=== PATIENT | male | born 1975 | race Caucasian/White ===

== ENCOUNTER 2017-08-19 11:13 | Inpatient (IN) | payer OTHER ==
[~2017-08-19] VITALS: Ht 165.1 cm; Wt 111.0 kg
[2017-08-19] MEDS ORDERED: morphine 4 MG/ML VIAL IV STA (12:09)
[2017-08-19] MEDS ORDERED: ONDANSETRON 4 MG INJ IV STA (12:09)
[2017-08-19] MEDS ORDERED: SOD CHLORIDE 0.9% 1,000 ML IV ONE ×2 (12:30→13:30)
[2017-08-19] MEDS ORDERED: PIPER-TAZO 3.375 GM IV (PMX) 100 ML IVPB ONE (12:30)
[2017-08-19] MEDS ORDERED: VANCOMYCIN 1 GM (PMX) 250 ML IVPB SCH (12:30)
[2017-08-19 12:41] LABS: BASOPHIL # 0.1 10^3/ul (0.0-0.1); BASOPHILS % 0.6 % (0.0-2.0); EOSINOPHILS # 0.3 10^3/ul (0.0-0.5); EOSINOPHILS % 3.6 % (0.0-7.0); HEMATOCRIT 44.4 % (42.0-52.0); HEMOGLOBIN 15.4 g/dl (14.0-18.0); LYMPHOCYTES # 2.2 10^3/ul (0.8-2.9); LYMPHOCYTES % 25.5 % (15.0-51.0); MEAN CORPUSCULAR HEMOGLOBIN 28.7 pg (29.0-33.0); MEAN CORPUSCULAR HGB CONC 34.7 g/dl (32.0-37.0); MEAN CORPUSCULAR VOLUME 82.7 fl (82.0-101.0); MEAN PLATELET VOLUME 10.2 fl (7.4-10.4); MONOCYTE # 0.6 10^3/ul (0.3-0.9); MONOCYTES % 7.2 % (0.0-11.0); NEUTROPHIL # 5.4 10^3/ul (1.6-7.5); NEUTROPHILS % 62.8 % (39.0-77.0); PLATELET COUNT 393 10^3/UL (140-415); RED BLOOD COUNT 5.37 10^6/ul (4.70-6.10); RED CELL DISTRIBUTION WIDTH 11.5 % (11.5-14.5); WHITE BLOOD COUNT 8.6 10^3/ul (4.8-10.8)
[2017-08-19 13:01] LABS: C-REACTIVE PROTEIN 5.6 mg/dl (0.0-0.9); CALCIUM 9.3 mg/dl (8.4-10.2); CREATININE 0.78 mg/dl (0.61-1.24); POTASSIUM 4.4 mmol/L (3.5-5.1)
--- NOTE | 2017-08-19 13:12 | RADRPT ---
PROCEDURE: XR Ankle. CLINICAL INDICATION: Ankle pain TECHNIQUE: Three views of the right ankle are available for review COMPARISON: None available FINDINGS: There is no acute osseous or articular abnormality. No evidence for fracture. Bone mineral density is preserved. The articular surfaces are smooth without evidence of marginal erosions. There is spu rring of the anteromedial aspect of the talus without additional features of anterior ankle impingem ent. An os trigonum is present. A small plantar calcaneal enthesiophyte is present. There is soft ti ssue swelling in the region of the Achilles tendon insertion. IMPRESSION: 1. No acute osseous abnormality. 2. Marked soft tissue swelling the region of the Achilles insertion. Please note that MRI is more s ensitive in evaluating the soft tissues. 3. Bimalleolar soft tissue swelling. RPTAT: UU .Shree Hillman MD, MD Date Time Electronically viewed and signed by .Shree Hillman MD, MD on 08/19/2017 13:11 .d/
--- NOTE | 2017-08-19 13:12 | RADRPT ---
PROCEDURE: XR Foot. CLINICAL INDICATION: Foot pain TECHNIQUE: Three views of the right foot are available for review. COMPARISON: None available FINDINGS: There is no acute osseous or articular abnormality. No evidence for fracture. Bone mineral density is preserved. The articular surfaces are smooth without evidence of marginal erosions. There is spu rring of the anteromedial aspect of the talus without additional features of anterior ankle impingem ent. An os trigonum is present. A small plantar calcaneal enthesiophyte is present. There is soft ti ssue swelling in the region of the Achilles tendon insertion. IMPRESSION: 1. No acute osseous abnormality. 2. Marked soft tissue swelling the region of the Achilles insertion. Please note that MRI is more s ensitive in evaluating the soft tissues. 3. Bimalleolar soft tissue swelling. RPTAT: UU .Shree Hillman MD, MD Date Time Electronically viewed and signed by .Shree Hillman MD, MD on 08/19/2017 13:12 .d/
[2017-08-19 13:28] LABS: INR 1.12; PROTIME 14.4 Sec (12.2-14.2); PT RATIO 1.1
--- NOTE | 2017-08-19 13:58 | EN ---
Date/Time of Note Date/Time of Note DATE: 08/19/17 TIME: 13:56 ER Progress Note I have seen and evaluated the patient along with the PA and/or COATER provider. I agree with the evaluation and plan of care. Please see their documentation for full ER course and evaluation. In short: This is a 42-year-old male who presents for a wound to the right ankle. On exam: The patient has a significantly necrotic and excoriated wound to the posterior aspect of the lateral malleolus of the right lower extremity, no crepitus but associated induration and erythema and warmth, no lymphangitic spread, 2+ dorsalis pedis and posterior tibial pulses. Assessment and plan: The patient has signs and symptoms consistent with an abscess that is concerning for diabetic wound that may be hvac sales representative of osteomyelitis. The patient does not have a significant leukocytosis but does have elevated ESR and CRP and a slight lactic acidosis. Sodium is normal, very low clinical concern for necrotizing process. However MRI imaging would be appropriate. The patient is also found to be a new diabetic. This is likely type 2 diabetes. The patient was given a first dose of metformin here in the emergency room and IV fluids. Blood cultures were taken and the patient was given vancomycin and Zosyn. He has no evidence of Sirs or sepsis at this point other than his isolated lactic acid elevation. The patient does not meet sepsis criteria in the emergency department. Accepting care team and consultations: I discussed the current laboratory data, diagnostic imaging and emergency care provided. Admitting team: Dr. Carroll Admitting team indication: Insurance directed MARIETTA NOEL MD Aug 19, 2017 13:58
[2017-08-19] MEDS ORDERED: metFORMIN 500 MG TAB PO ONE (14:00)
[2017-08-19] MEDS ORDERED: ONDANSETRON 4 MG INJ IV PRN ×2 (14:00→16:30)
[2017-08-19] MEDS ORDERED: ACETAMINOPHEN 325 MG TAB PO PRN ×2 (14:00→16:30)
[2017-08-19 14:35] LABS: PARTIAL THROMBOPLASTIN TIME 25.3 Sec (25.0-35.0)
--- NOTE | 2017-08-19 15:16 | ERD ---
ER Documentation Chief Complaint Chief Complaint RT HEEL WOUND X 12 DAYS. DRAINING AND BLACK. UNKNOWN IF DM HPI Patient is a 42-year-old male with no known past medical history presenting to the emergency department with complaints of wound to his right outer ankle. Wound has been increasing in size and worsening rapidly over the past 3 days. He denies any history of bug bites here. He notes some drainage to the wound. He has pain in the area which is worse with ambulation. Symptoms are moderate in severity. He has taken no antibiotics for this. He denies fevers, chills, or other symptoms currently. He does not smoke, he does not drink alcohol, he does not do drugs. He states he has never been told he has diabetes or high blood pressure however he does not follow up with his primary care physician regularly. No other symptoms to report currently. ROS All systems reviewed and are negative except as per history of present illness. Allergies Allergies: Coded Allergies: No Known Allergy (Unverified , 08/19/17) PMhx/Soc Medical and Surgical Hx: pt denies Medical Hx, pt denies Surgical Hx History of Surgery: No Anesthesia Reaction: No Hx Neurological Disorder: No Hx Respiratory Disorders: No Hx Cardiac Disorders: No Hx Psychiatric Problems: No Hx Miscellaneous Medical Probl: No Hx Alcohol Use: No Hx Substance Use: No Hx Tobacco Use: No Smoking Status: Never smoker Physical Exam Vitals Vital Signs Date Time Temp Pulse Resp B/P Pulse Ox O2 Delivery O2 Flow Rate FiO2 08/19/17 11:24 98.9 84 18 138/90 95 Physical Exam Const: Nontoxic, well-appearing male in no acute distress. Head: Atraumatic Eyes: Normal Conjunctiva ENT: Normal External Ears, Nose and Mouth. Neck: Full range of motion..~ No meningismus. Resp: Clear to auscultation bilaterally Cardio: Regular rate and rhythm, no murmurs Skin: There is an approximate 3 cm x 3 cm excoriated, necrotic area noted to the lateral malleolus of the right lower extremity. There is some active purulent drainage at the site. There is surrounding warmth and erythema with spread proximally about 6 centimeters past the wound area. Ext: No cyanosis, or edema Neur: Awake and alert Psych: Normal Mood and Affect Result Diagram: 08/19/17 1210 08/19/17 1210 Results 24 hrs Laboratory Tests Test 08/19/17 12:10 White Blood Count 8.610^3/ul Red Blood Count 5.3710^6/ul Hemoglobin 15.4g/dl Hematocrit 44.4% Mean Corpuscular Volume 82.7fl Mean Corpuscular Hemoglobin 28.7pg Mean Corpuscular Hemoglobin Concent 34.7g/dl Red Cell Distribution Width 11.5% Platelet Count 09657^3/UL Mean Platelet Volume 10.2fl Neutrophils % 62.8% Lymphocytes % 25.5% Monocytes % 7.2% Eosinophils % 3.6% Basophils % 0.6% Nucleated Red Blood Cells % 0.0/100WBC Neutrophils # 5.410^3/ul Lymphocytes # 2.210^3/ul Monocytes # 0.610^3/ul Eosinophils # 0.310^3/ul Basophils # 0.110^3/ul Nucleated Red Blood Cells # 0.010^3/ul Erythrocyte Sedimentation Rate 45mm/Hr Prothrombin Time 14.4Sec Prothrombin Time Ratio 1.1 INR International Normalized Ratio 1.12 Activated Partial Thromboplast Time 25.3Sec Sodium Level 142mmol/L Potassium Level 4.4mmol/L Chloride Level 100mmol/L Carbon Dioxide Level 31mmol/L Anion Gap 15 Blood Urea Nitrogen 14mg/dl Creatinine 0.78mg/dl Glucose Level 301mg/dl Lactic Acid Level 2.7mmol/L Calcium Level 9.3mg/dl C-Reactive Protein 5.6mg/dl Current Medications Medications (Trade) Dose Ordered Sig/Nika Route PRN Reason Start Time Stop Time Status Last Admin Dose Admin Morphine Sulfate (morphine) 4 mg ONCE STAT IV 08/19/17 12:09 08/19/17 12:13 DC 08/19/17 12:19 Ondansetron HCl 4 mg 4 mg ONCE STAT IV 08/19/17 12:09 08/19/17 12:13 DC 08/19/17 12:19 Sodium Chloride 1,000 ml @ 1,000 mls/hr Q1H ONCE IV 08/19/17 12:30 08/19/17 13:29 DC 08/19/17 12:19 Piperacillin Sod/ Tazobactam Sod 100 ml @ 200 mls/hr ONCE ONCE IVPB 08/19/17 12:30 08/19/17 12:59 DC 08/19/17 12:19 Vancomycin HCl 250 ml @ 125 mls/hr ONCE IVPB 08/19/17 12:30 08/19/17 14:29 DC 08/19/17 13:20 Sodium Chloride (NS) 1,000 ml @ 1,000 mls/hr Q1H ONCE IV 08/19/17 13:30 08/19/17 14:29 DC 08/19/17 13:44 Metformin HCl (Glucophage) 500 mg ONCE ONCE PO 08/19/17 14:00 08/19/17 14:01 DC 08/19/17 15:01 Ondansetron HCl (Zofran Inj) 4 mg BRIDGE ORDER PRN IV NAUSEA AND/OR VOMITING 08/19/17 14:00 08/20/17 13:59 Acetaminophen (Tylenol Tab) 650 mg ER BRIDGE PRN PO MILD PAIN/FEVER 08/19/17 14:00 08/20/17 13:59 Procedures/MDM 42-year-old male presents to the emergency department with complaints of wound to his right lower extremity. Physical examination is concerning for an abscess with surrounding cellulitis with possible early necrosis. The patient was placed on a stretcher, IV line established, IV fluids, IV morphine, IV Zofran, IV vancomycin, IV Zosyn given. The patient is feeling improved on reevaluation. Upon review of the patient's laboratory results, there is no evidence of leukocytosis or anemia. ESR was elevated at 45, glucose is elevated at 301, C-reactive protein elevated at 5.6, lactic acid elevated at 2.7. The patient was given 2 L of IV fluids in the department as well as early antibiotic therapy. The patient did not meet septic criteria because of his normal white count. This case was discussed with attending physician, Dr. Lenard Rubalcava, who evaluated the patient bedside and agreed with the overall ED course. He did facilitate admission for the patient. See admission details below. Imaging of the right ankle showed no signs of osteomyelitis, see further details below. Patient will be admitted for further evaluation and treatment as appropriate by admitting physician. Accepting care team and consultations: I discussed the current laboratory data, diagnostic imaging and emergency care provided. Admitting team: Dr. Carroll Admitting team indication: Insurance directed PROCEDURE: XR Ankle. CLINICAL INDICATION: Ankle pain TECHNIQUE: Three views of the right ankle are available for review COMPARISON: None available FINDINGS: There is no acute osseous or articular abnormality. No evidence for fracture. Bone mineral density is preserved. The articular surfaces are smooth without evidence of marginal erosions. There is spurring of the anteromedial aspect of the talus without additional features of anterior ankle impingement. An os trigonum is present. A small plantar calcaneal enthesiophyte is present. There is soft tissue swelling in the region of the Achilles tendon insertion. IMPRESSION: 1. No acute osseous abnormality. 2. Marked soft tissue swelling the region of the Achilles insertion. Please note that MRI is more sensitive in evaluating the soft tissues. 3. Bimalleolar soft tissue swelling. RPTAT: UU .Shree Hillman MD, MD Date Time Electronically viewed and signed by .Shree Hillman MD, MD on 08/19/2017 13:11 Departure Diagnosis: Primary Impression: Cellulitis Site of cellulitis: extremity Site of cellulitis of extremity: lower extremity Laterality: right Qualified Code: L03.115 - Cellulitis of right lower extremity Additional Impressions: Diabetic ulcer of ankle Hyperglycemia Condition: Fair TESSY LEVY PA-C Aug 19, 2017 15:16
[2017-08-19 16:16] VITALS: BP 92/46; PULSE 85; RESP 16
[2017-08-19 16:23] VITALS: Ht 165.1 cm; Wt 111.0 kg
[2017-08-19] MEDS ORDERED: NA PHOSPHATE/BIPHOS 133 ML ENEMA PR PRN (16:30)
[2017-08-19] MEDS ORDERED: VANCOMYCIN IV PER PHARMACY XX SCH (16:30)
[2017-08-19] MEDS ORDERED: MAGNESIUM HYDROXIDE 30ML CUP PO PRN (16:30)
[2017-08-19] MEDS ORDERED: hydrALAzine 20 MG INJ IV PRN (16:30)
[2017-08-19] MEDS ORDERED: HYDROCODONE/APAP (5/325) TAB PO PRN (16:30)
[2017-08-19] MEDS ORDERED: LORAZEPAM 2 MG INJ IV PRN (16:30)
[2017-08-19] MEDS ORDERED: ALBUTEROL/IPRATROPIUM (NEB) 3 ML AMP HHN PRN (16:30)
[2017-08-19] MEDS ORDERED: DOCUSATE SODIUM 100 MG CAP PO PRN (16:30)
[2017-08-19] MEDS ORDERED: NITROGLYCERIN (SL) 0.4 MG TAB SL PRN (16:30)
[2017-08-19] MEDS ORDERED: NACL 0.9% 3 ML SYG IV SCH (16:30)
[2017-08-19] MEDS ORDERED: GLUCOSE GEL 15 GRAM TUBE PO PRN ×2 (17:00)
[2017-08-19] MEDS ORDERED: GLUCOSE GEL 15 GRAM TUBE BUCCAL PRN (17:00)
[2017-08-19] MEDS ORDERED: DEXTROSE 50% 50 ML SYRINGE IV PRN ×2 (17:00)
[2017-08-19] MEDS ORDERED: GLUCAGON 1 MG INJ IM PRN (17:00)
[2017-08-19] MEDS ORDERED: VANCOMYCIN 1 GM (PMX) 250 ML IVPB ONE (17:00)
[2017-08-19] MEDS: SOD CHLORIDE 0.45% 1,000 ML IV SCH (17:36)
[2017-08-19] MEDS: INSULIN ASPART [NOVOLOG] 3 ML PEN SC SCH ×2 (17:49→23:07)
[2017-08-19 18:59] LABS: PT RATIO 1.1
[2017-08-19 19:01] LABS: PARTIAL THROMBOPLASTIN TIME 24.3 Sec (25.0-35.0)
[2017-08-19 19:13] LABS: INR 1.04; PROTIME 13.6 Sec (12.2-14.2)
[2017-08-19 19:28] VITALS: BP 93/51; RESP 18
[2017-08-19] MEDS ORDERED: LIDOCAINE 1% (MDV) 20 ML INJ ONE ×2 (19:53→20:00)
--- NOTE | 2017-08-19 20:11 | HP ---
DATE OF ADMISSION: 08/19/2017 IDENTIFICATION: This is a 42-year-old male. CHIEF COMPLAINT: Right foot pain and drainage. HISTORY OF PRESENT ILLNESS: The patient is a 42-year-old male, no significant past medical history, who says he has been having right ankle and foot pain for the last 4-5 days. Occurs mostly on the right outer ankle. He says he did not have any history of any bug bites, but he believes something fell in his house. It is unclear he says he may have hit his ankle against a piece of wood or furniture at home and started to notice some dark drainage as well as pus coming from the area for the last 4-5 days from the right ankle. No prior history of this. No chest pain or shortness of breath. No headaches or dizziness. No loss of consciousness. No fevers or chills. No diarrhea or constipation. No abdominal pain. When he came into the Emergency Room today, he was found with elevated lactic acid of around 2.7. His sugars were also elevated around 300 and the CRP and ESR were elevated as well and he had an ankle x-ray that showed no acute osseous abnormalities, but there is some marked soft tissue swelling in the region of the Achilles insertion. PAST MEDICAL HISTORY: As stated above. ALLERGIES: NO KNOWN DRUG ALLERGIES. MEDICATIONS: None. PAST SURGICAL HISTORY: None. SOCIAL HISTORY: Negative for smoking, drinking, IV drug abuse. FAMILY HISTORY: Mother had cancer and sister has diabetes. PHYSICAL EXAMINATION: VITAL SIGNS: Today, T-max 98.9, pulse of 84 to 85, respirations 16 to 18, blood pressure 92 to 138 systolic over 46 to 90 diastolic, sating at 96 percent on room air. GENERAL: The patient is lying in bed, answers questions appropriately. No acute distress. HEENT: Pupils equal, round, react to light. Extraocular muscles intact. NECK: Supple. No thyromegaly. LUNGS: Clear to auscultation bilaterally. CARDIAC: S1, S2 heard. No rubs or gallops. ABDOMEN: Soft, nontender, nondistended. Normal bowel sounds. No rebound or guarding. MUSCULOSKELETAL: On his right lower extremity on the right ankle, there is some redness and warmth noted on the right outer foot and also there is drainage noted on the outside right lateral malleolus. Some mild pus drainage as well. Otherwise, no lower extremity edema bilaterally. NEUROLOGIC: No focal deficits. LABS: CBC is completely normal. ESR is 45. Again, basic metabolic panel is normal except the sugar is 301. Lactic acid 2.7. CRP is 5.6, coags are normal. We mentioned x-ray results. ASSESSMENT/PLAN: The patient is a 42-year-old male coming in with right ankle pain with signs of cellulitis and rule out osteomyelitis. 1. Right ankle pain and swelling. Again, signs of infection. We will admit the patient and put him on broad spectrum antibiotic. We will get infectious disease and podiatry consult. Check TSH, A1c, and lipid panel. We put him on IV fluids. We will follow culture results. Tylenol p.r.n. pain and fevers. Broad-spectrum antibiotics. 2. Deep venous thrombosis prophylaxis. Heparin subcu. Dictated By: Elijah Carroll MD /lalo/scot /Document#: [id number]
[2017-08-19] MEDS: PIPER-TAZO 3.375 GM IV (PMX) 100 ML IVPB SCH (20:21)
[2017-08-19] MEDS ORDERED: FLUCONAZOLE 200 MG TAB PO ONE (20:30)
[2017-08-19] MEDS ORDERED: metroNIDAZOLE 500 MG/NS (PMX) 250 MG in EVAC CONTAINER 1 BOTTLE IVPB ONE (20:30)
[2017-08-19] MEDS: SODIUM HYPOCHLORITE 1/40% 1L IRRIG IRR SCH (21:00)
[2017-08-19] MEDS: HEPARIN 5,000 UNIT/0.5 ML VIAL SC SCH (22:56)
[2017-08-19] MEDS: morphine 2 MG INJ IV PRN (22:58)
[2017-08-19] MEDS: VANCOMYCIN 1.75 GM in NS 500 ML IVPB SCH (23:43)
[2017-08-20] MEDS: PIPER-TAZO 3.375 GM IV (PMX) 100 ML IVPB SCH ×5 (00:49→23:45)
[2017-08-20] MEDS: INSULIN ASPART [NOVOLOG] 3 ML PEN SC SCH ×7 (01:00→20:51)
[2017-08-20 02:00] VITALS: BP 104/64; RESP 18
[2017-08-20] MEDS ORDERED: ACCU-CHEK XX SCH (02:00)
--- NOTE | 2017-08-20 02:15 | CONS ---
DATE OF ADMISSION: 08/19/2017 DATE OF CONSULTATION: 08/19/2017 REASON FOR CONSULTATION: Right lateral ankle abscess. 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 The patient has a necrotizing infection and patient relates pain. Denies fever, nausea, vomiting , chills. He had radiographs and showed no osseous irregularity. There is marked soft tissue swell ing. Patient unfunded. PAST MEDICAL HISTORY: Illnesses: Newly diagnosed diabetes. MEDICATIONS: Include: 1. Vancomycin. 2. Zosyn. ILLNESSES: None. ALLERGIES: NONE. PHYSICAL EXAMINATION: VITAL SIGNS: Temperature 99, pulse 98, respiratory 18, blood pressure 93/51, pulse oximetry is 94 o n room air. GENERAL: The patient alert, oriented, no acute distress. Regular respiration. EXTREMITIES: Has hair on the right lower extremity and there is cellulitis to the right lateral ank le with skin necrosis with 2 patches with area indurated of approximately 10 x 5 cm. There is purul ent drainage. The skin necrosis is posterior lateral ankle approximately 3 x 3 cm. Pain with palpa tion. The patient has a 2+ DP, PT pulse. Malodor present. The patient with ascending cellulitis. LABORATORIES: WBC 8.6, hemoglobin 15.4, hematocrit 44.4, platelets 393. Sed rate is 45. Blood glu cose is 283. Lactic acid is 2.3. Sodium 142, potassium 4.4, chloride 100, CO2 31, BUN is 14, creat inine 0.78, glucose is 301. C-reactive protein is 5.6. Radiographs of ankle and foot, no osseous i rregularity soft tissue edema present. ASSESSMENT: 1. Right ankle abscess with skin, subcutaneous necrosis, necrotizing infection. 2. Diabetes, newly diagnosed. 3. Hyperglycemia. 4. Edema. 5. Pain. PLAN: Patient seen and evaluated. Would benefit from operative intervention. Given the severity a nd potential for further skin necrosis from necrotizing infection, recommend emergent incision and d rainage. Patient consented, and patient understands he may require further operative intervention. Consented for right foot and ankle incision and drainage. Local anesthesia 1% lidocaine plain was injected to the periphery of the ankle. Using an 11-blade, incision was made of approximately 10 cm , was carried below fascia. Hemostat was used to express the abscess. There is a necrotizing infec tion to level of peroneal tendon and traveling to the posterior aspect of the Achilles tendon. Ther e is purulent drainage which was overflowing. Cultures were obtained. Wound was irrigated with Bet adine and packed open with gauze dressing, wrapped with Kerlix. The patient tolerated procedure wel l. Timeout was performed. Nurse assisted with procedure and patient had been initiated on vancomyc in and Zosyn. We will add Flagyl and fluconazole. Dictated By: KAT KIRAN DPM RB/GRIFFIN Conf#: [id number] DID#: [id number] CC: NIKKI JUÁREZ;*Kristan*
[2017-08-20] MEDS: morphine 2 MG INJ IV PRN ×2 (03:34→11:41)
[2017-08-20] MEDS: SOD CHLORIDE 0.45% 1,000 ML IV SCH ×2 (05:16→17:35)
[2017-08-20 06:12] LABS: BASOPHILS % 0.4 % (0.0-2.0); EOSINOPHILS # 0.2 10^3/ul (0.0-0.5); HEMATOCRIT 39.4 % (42.0-52.0); HEMOGLOBIN 13.2 g/dl (14.0-18.0); LYMPHOCYTES # 1.8 10^3/ul (0.8-2.9); MEAN CORPUSCULAR HEMOGLOBIN 28.3 pg (29.0-33.0); MEAN CORPUSCULAR HGB CONC 33.5 g/dl (32.0-37.0); MEAN CORPUSCULAR VOLUME 84.4 fl (82.0-101.0); MEAN PLATELET VOLUME 10.4 fl (7.4-10.4); MONOCYTE # 0.7 10^3/ul (0.3-0.9); MONOCYTES % 7.2 % (0.0-11.0); NEUTROPHIL # 6.4 10^3/ul (1.6-7.5); NEUTROPHILS % 70.1 % (39.0-77.0); PLATELET COUNT 352 10^3/UL (140-415); RED BLOOD COUNT 4.67 10^6/ul (4.70-6.10); RED CELL DISTRIBUTION WIDTH 11.9 % (11.5-14.5); WHITE BLOOD COUNT 9.1 10^3/ul (4.8-10.8)
[2017-08-20] MEDS: VANCOMYCIN 1.75 GM in NS 500 ML IVPB SCH ×2 (06:39→16:04)
[2017-08-20 06:42] LABS: CALCIUM 8.7 mg/dl (8.4-10.2); CHOL/HDL RATIO 5.4 RATIO; CREATININE 0.93 mg/dl (0.61-1.24); PHOSPHORUS 5.1 mg/dl (2.5-4.9); POTASSIUM 4.5 mmol/L (3.5-5.1)
[2017-08-20 07:11] LABS: THYROID STIMULATING HORMONE 0.775 MIU/L (0.465-4.680)
[2017-08-20 07:16] LABS: MAGNESIUM 1.9 mg/dl (1.7-2.5)
[2017-08-20 07:49] VITALS: BP 106/60; RESP 18
[2017-08-20] MEDS ORDERED: INSULIN GLARGINE [LANtus] 3 ML PEN SC SCH (08:00)
[2017-08-20] MEDS: HEPARIN 5,000 UNIT/0.5 ML VIAL SC SCH ×2 (08:43→20:50)
--- NOTE | 2017-08-20 09:20 | PN ---
Date/Time of Note Date/Time of Note DATE: 08/20/17 TIME: 09:14 Assessment/Plan VTE Prophylaxis VTE Prophylaxis Intervention: heparin Lines/Catheters IV [facility]from [facility] Saline [facility] Assessment/Plan Chief Complaint/Hosp Course ASSESSMENT/PLAN: 42-year-old male coming in with right ankle pain with signs of cellulitis and rule out osteomyelitis, as well as elevated blood sugars. 1. Right ankle pain and swelling-appreciate podiatry consult, patient had bedside incision and drainage performed yesterday -Continue broad spectrum antibiotics. -Follow-up further recommendations infectious disease and podiatry consult Continue IV fluids, and follow up culture results. - Tylenol p.r.n. pain and fevers. -MRI of the foot is pending as well follow this up 2. DM2 -appears to be new diagnosis as patient was not aware of any history of diabetes in the past. A1c = 10 range. Sugar still slightly elevated. -We will add aspart with meals, increase Lantus slightly, continue sliding scale 3. Deep venous thrombosis prophylaxis. Heparin subcu. 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 Exam/Review of Systems Vital Signs Vitals Vital Signs Date Time Temp Pulse Resp B/P Pulse Ox O2 Delivery O2 Flow Rate FiO2 08/20/17 07:49 98.5 55 18 106/60 96 08/19/17 16:16 Room Air Intake and Output 08/19/17 08/19/17 08/20/17 15:00 23:00 07:00 Intake Total 500 ml 1450 ml Balance 500 ml 1450 ml Exam GENERAL: The patient is lying in bed, answers questions appropriately. No acute distress. HEENT: Pupils equal, round, react to light. Extraocular muscles intact. NECK: Supple. No thyromegaly. LUNGS: Clear to auscultation bilaterally. CARDIAC: S1, S2 heard. No rubs or gallops. ABDOMEN: Soft, nontender, nondistended. Normal bowel sounds. No rebound or guarding. MUSCULOSKELETAL: On his right lower extremity on the right ankle, there is some redness and warmth noted on the right outer foot and also there is drainage noted on the outside right lateral malleolus. Some mild pus drainage as well. Otherwise, no lower extremity edema bilaterally. NEUROLOGIC: No focal deficits. Results Result Diagram: 08/20/17 0534 08/20/17 0534 Results 24 hrs Laboratory Tests Test 08/19/17 12:10 08/19/17 16:09 08/19/17 17:25 08/19/17 18:30 White Blood Count 8.6 Red Blood Count 5.37 Hemoglobin 15.4 Hematocrit 44.4 Mean Corpuscular Volume 82.7 Mean Corpuscular Hemoglobin 28.7 L Mean Corpuscular Hemoglobin Concent 34.7 Red Cell Distribution Width 11.5 Platelet Count 393 Mean Platelet Volume 10.2 Neutrophils % 62.8 Lymphocytes % 25.5 Monocytes % 7.2 Eosinophils % 3.6 Basophils % 0.6 Nucleated Red Blood Cells % 0.0 Neutrophils # 5.4 Lymphocytes # 2.2 Monocytes # 0.6 Eosinophils # 0.3 Basophils # 0.1 Nucleated Red Blood Cells # 0.0 Erythrocyte Sedimentation Rate 45 H Prothrombin Time 14.4 H 13.6 Prothrombin Time Ratio 1.1 1.1 INR International Normalized Ratio 1.12 1.04 Activated Partial Thromboplast Time 25.3 24.3 L Sodium Level 142 Potassium Level 4.4 Chloride Level 100 Carbon Dioxide Level 31 Anion Gap 15 Blood Urea Nitrogen 14 Creatinine 0.78 Glucose Level 301 H Lactic Acid Level 2.7 *H 1.6 Calcium Level 9.3 C-Reactive Protein 5.6 H Bedside Glucose 267 H 283 H Free Thyroxine 1.32 Test 08/19/17 22:40 08/20/17 00:51 08/20/17 00:59 08/20/17 05:34 Bedside Glucose 254 H 234 H Lactic Acid Level 1.9 1.4 White Blood Count 9.1 Red Blood Count 4.67 L Hemoglobin 13.2 L Hematocrit 39.4 L Mean Corpuscular Volume 84.4 Mean Corpuscular Hemoglobin 28.3 L Mean Corpuscular Hemoglobin Concent 33.5 Red Cell Distribution Width 11.9 Platelet Count 352 Mean Platelet Volume 10.4 Neutrophils % 70.1 Lymphocytes % 20.0 Monocytes % 7.2 Eosinophils % 2.0 Basophils % 0.4 Nucleated Red Blood Cells % 0.0 Neutrophils # 6.4 Lymphocytes # 1.8 Monocytes # 0.7 Eosinophils # 0.2 Basophils # 0.0 Nucleated Red Blood Cells # 0.0 Sodium Level 141 Potassium Level 4.5 Chloride Level 104 Carbon Dioxide Level 28 Anion Gap 14 Blood Urea Nitrogen 15 Creatinine 0.93 Glucose Level 225 H Hemoglobin A1c 10.2 H Calcium Level 8.7 Phosphorus Level 5.1 H Magnesium Level 1.9 Triglycerides Level 146 Cholesterol Level 157 LDL Cholesterol, Calculated 99 HDL Cholesterol 29 Cholesterol/HDL Ratio 5.4 Thyroid Stimulating Hormone (TSH) 0.775 Test 08/20/17 08:14 Bedside Glucose 222 H Medications Medications Current Medications Ondansetron HCl (Zofran Inj) 4 mg Q6H PRN IV NAUSEA AND/OR VOMITING; Start at 16:30 Acetaminophen (Tylenol Tab) 650 mg Q6H PRN PO PAIN LEVEL 1-3 OR FEVER; Start 08/19/17 at 16:30 Acetaminophen/ Hydrocodone Bitart ([place] (5/325)) 1 tab Q6H PRN PO MODERATE PAIN LEVEL 4-6; Start 08/19/17 at 16:30 Morphine Sulfate (morphine) 2 mg Q4H PRN IV SEVERE PAIN LEVEL 7-10 Last administered on 08/20/17 03:34; Admin Dose 2 MG; Start 08/19/17 at 16:30 Docusate Sodium (Colace) 100 mg Q12H PRN PO CONSTIPATION; Start 08/19/17 at 16 :30 Magnesium Hydroxide (Milk Of Mag) 30 ml DAILY PRN PO CONSTIPATION; Start 08/19 at 16:30 Sodium Biphosphate/ Sodium Phosphate (Fleet Enema) 133 ml DAILY PRN NM CONSTIPATION; Start 08/19/17 at 16:30 Heparin Sodium (Porcine) 5000 unit 5,000 unit Q12 SC Last administered on 08/20 08:43; Admin Dose 5,000 UNIT; Start 08/19/17 at 21:00 Sodium Chloride (1/2 NS) 1,000 ml @ 75 mls/hr [id number] IV Last administered on 08/19/17 17:36; Admin Dose 75 MLS/HR; Start 08/19/17 at 16:26 Lorazepam 0.5 mg 0.5 mg Q6H PRN IV ANXIETY; Start 08/19/17 at 16:30 Piperacillin Sod/ Tazobactam Sod (Zosyn 3.375gm/ 100 ml (Pmx)) 100 ml @ 200 mls /hr Q6 IVPB Last administered on 08/20/17 05:33; Admin Dose 200 MLS/HR; Start 08/19/17 at 18:00 Vancomycin HCl (Vanco Iv Per Pharmacy) VANCOMYCIN PER PHARMACY NOTE XX ; Start 08/19/17 at 16:30 Hydralazine HCl (Apresoline) 10 mg Q6H PRN IV ELEVATED BLOOD PRESSURE; Start 08/19/17 at 16:30 Clonidine (Catapres) 0.1 mg Q6H PRN PO ELEVATED BLOOD PRESSURE; Start at 16:30 Nitroglycerin (Nitroglycerin (Sl Tab) 0.4 Mg) 1 tab Q5M PRN SL ANGINA; Start 08/19/17 at 16:30 Miscellaneous Information 1 ea NOTE XX ; Start 08/19/17 at 17:00 Glucose (Glutose) 15 gm Q15M PRN PO DECREASED GLUCOSE; Start 08/19/17 at 17:00 Glucose (Glutose) 22.5 gm Q15M PRN PO DECREASED GLUCOSE; Start 08/19/17 at 17: 00 Dextrose (D50w Syringe) 25 ml Q15M PRN IV DECREASED GLUCOSE; Start 08/19/17 at 17:00 Dextrose (D50w Syringe) 50 ml Q15M PRN IV DECREASED GLUCOSE; Start 08/19/17 at 17:00 Glucagon (Glucagen) 1 mg Q15M PRN IM DECREASED GLUCOSE; Start 08/19/17 at 17: 00 Glucose 15 gm 15 gm Q15M PRN BUCCAL DECREASED GLUCOSE; Start 08/19/17 at 17:00 Vancomycin HCl/ Sodium Chloride (Vancocin/NS) 500 ml @ 125 mls/hr Q8H IVPB Last administered on 08/20/17 06:39; Admin Dose 125 MLS/HR; Start 08/19/17 at 23:00 Sodium Hypochlorite (Dakin'S (Dilute 1/40%)) 1 applic BID IRR ; Start 08/19/17 at 21:00 Diagnostic Test (Pha) (Accu-Chek) 1 ea 02 XX ; Start 08/21/17 at 02:00 Miscellaneous Information (*Rx Drug Level Order Reminder*) VANCOMYCIN TROUGH AT 1400 ONCE ONCE XX ; Start 08/20/17 at 14:00; Stop 08/20/17 at 14:01 Insulin Glargine (Lantus) 20 unit DAILY@08 IN ; Start 08/21/17 at 08:00; Status AVIV NIKKI JUÁREZ Aug 20, 2017 09:20
--- NOTE | 2017-08-20 11:19 | CONS ---
DATE OF ADMISSION: 08/19/2017 DATE OF CONSULTATION: 08/19/2017 TYPE OF CONSULTATION: Infectious disease. REASON FOR CONSULTATION: Antibiotic management. HISTORY OF PRESENT ILLNESS: Darius Benton is a 42-year-old male who comes in with right f oot pain and drainage. Patient has no past significant medical history. He has been having right a nkle and foot pain for the last 4 or 5 days prior to admission. The pain occurs mostly on the right outer ankle. He did not have any history of bug bites. He may have hit his ankle against a piece of furniture and started to notice dark drainage as well as pus coming from the area over the last 4 -5 days from right ankle. No chest pain or shortness of breath. LABORATORY DATA: His lactic acid was 2.7 in the emergency room. His sugar was elevated around 300. CRP and ESR were elevated as well and he had an ankle x-ray that showed no acute osseous abnormali ties with marked soft tissue swelling in the region of the Achilles insertion. On admission, his wh ite count was 8.6, H and H 15.4 and 44.4, platelet count 393,000. Today his white count is 9.1, BUN and creatinine is 16/0.93. An x-ray of the foot shows no acute osseous abnormalities, marked soft tissue swelling of the region of the Achilles insertion, an MRI was recommended, bimalleolar soft ti ssue swelling. Ankle x-ray: No change same as the foot x-ray. MICROBIOLOGY: Blood cultures are positive for gram-positive cocci in clusters. The patient noted t o have right ankle cellulitis, rule out osteomyelitis. Podiatry as well as infectious disease was judith marrero. The patient was started on vancomycin. He also was on Zosyn. PAST MEDICAL HISTORY: Operations as outlined. FAMILY HISTORY: Noncontributory. SOCIAL HISTORY: Does not smoke, drink or abuse drugs. ALLERGIES: NONE TO PENICILLIN, SULFA OR FOODS. MEDICATIONS: Per chart. REVIEW OF SYSTEMS: As per HPI. PHYSICAL EXAMINATION: GENERAL: The patient is a well-developed, well-nourished male who is alert, responsive, in no acute distress. VITAL SIGNS: Stable. He is afebrile. SKIN: Without generalized rash. HEENT: Within normal limits. NECK: Supple. LYMPH NODES: None palpable. CHEST: Decreased breath sounds at the bases. HEART: Without murmur, rub or gallop. ABDOMEN: Soft, nontender, without organosplenomegaly or masses. EXTREMITIES: Right lower extremity, the right ankle has redness, warmth on the lateral aspect with drainage of the right lateral malleolus. There is no edema. RECTAL AND GENITAL: Deferred. NEUROLOGIC: No focal neurological abnormalities. ANCILLARY LABORATORY DATA: Sedimentation rate is 45. Lactic acid was 2.7. IMPRESSION AND PLAN: The patient has a cellulitis and possibly osteomyelitis. An MRI is pending. We will continue him on vancomycin and Zosyn for now. Await the culture reports. He may benefit fr om repeat blood cultures. I will dictate my findings to the hospitalist. Dictated By: LIZETH ROACH MD, JD/GRIFFIN Conf#: [id number] DID#: [id number]
[2017-08-20] MEDS: SODIUM HYPOCHLORITE 1/40% 1L IRRIG IRR SCH ×2 (11:48→20:45)
[2017-08-20 13:45] VITALS: BP 114/65; RESP 14
--- NOTE | 2017-08-20 15:27 | RADRPT ---
PROCEDURE: MRI OF THE RIGHT FOOT CLINICAL INDICATION: Right foot pain and swelling, open wound with infection, concern for osteomyeli tis TECHNIQUE: Multiple MRI images were obtained utilizing multiple sequences in multiple planes. Image s were interpreted on a high-resolution PACS system. COMPARISON: Radiographs of the right ankle dated of 2016 FINDINGS: There is a very large posterolateral skin ulceration with associated granulation tissue and possible surgical packing that extends from the lateral margin of the distal Achilles tendon nearly to the p eroneal tendons at the posterolateral ankle that measures approximately 3 cm in anteroposterior dim ension and 1.5 cm in depth.(axial 16 and sagittal 21). There is surrounding cellulitic change withou t drainable fluid collection. There is no evidence of osteomyelitis at this time. The anterior extensor, medial flexor, peroneal, Achilles tendons are intact. The syndesmotic ligamen ts, , low lateral, and medial ankle ligaments are intact. There is no evidence of acute fracture. There is chronic bone proliferation at the anterior calcaneu s suggestive of a remote fracture (sagittal 19). The talar dome appears normal. There is no coalitio n. The plantar fascia is intact. The sinus tarsi normal nonspecific edema. IMPRESSION: 1. Large posterolateral skin defect/ulceration with adjacent cellulitic change and granulation tissu e measuring approximately 3 cm in anteroposterior dimension and 1.5 cm in depth. 2. No evidence of drainable fluid collection or underlying osteomyelitis at this time. 3. Remote anterior calcaneal fracture with chronic bone proliferation. 4. No evidence of tendon tear. 5. No acute osseous or acute ligamentous abnormality. RPTAT: UU .Don Jiménez MD, Date Time Electronically viewed and signed by .Don Jiménez MD, MD on 08/20/2017 15:27 .K/
[2017-08-20 20:00] VITALS: BP 103/59; RESP 19
[2017-08-21] MEDS: VANCOMYCIN 1.75 GM in NS 500 ML IVPB SCH ×2 (00:10→06:32)
[2017-08-21] MEDS: ACCU-CHEK XX SCH (01:30)
[2017-08-21] MEDS ORDERED: ACCU-CHEK XX SCH (02:00)
[2017-08-21 02:25] VITALS: BP 110/60; RESP 19
[2017-08-21] MEDS: PIPER-TAZO 3.375 GM IV (PMX) 100 ML IVPB SCH ×4 (05:26→23:40)
[2017-08-21 05:55] LABS: BASOPHILS % 0.5 % (0.0-2.0); EOSINOPHILS # 0.3 10^3/ul (0.0-0.5); EOSINOPHILS % 3.7 % (0.0-7.0); HEMATOCRIT 42.2 % (42.0-52.0); HEMOGLOBIN 14.4 g/dl (14.0-18.0); LYMPHOCYTES # 2.2 10^3/ul (0.8-2.9); LYMPHOCYTES % 29.7 % (15.0-51.0); MEAN CORPUSCULAR HEMOGLOBIN 28.4 pg (29.0-33.0); MEAN CORPUSCULAR HGB CONC 34.1 g/dl (32.0-37.0); MEAN CORPUSCULAR VOLUME 83.2 fl (82.0-101.0); MEAN PLATELET VOLUME 10.2 fl (7.4-10.4); MONOCYTE # 0.5 10^3/ul (0.3-0.9); MONOCYTES % 6.7 % (0.0-11.0); NEUTROPHIL # 4.4 10^3/ul (1.6-7.5); NEUTROPHILS % 58.9 % (39.0-77.0); PLATELET COUNT 383 10^3/UL (140-415); RED BLOOD COUNT 5.07 10^6/ul (4.70-6.10); RED CELL DISTRIBUTION WIDTH 11.6 % (11.5-14.5); WHITE BLOOD COUNT 7.5 10^3/ul (4.8-10.8)
[2017-08-21 06:52] LABS: CALCIUM 8.7 mg/dl (8.4-10.2); CREATININE 0.86 mg/dl (0.61-1.24); POTASSIUM 3.8 mmol/L (3.5-5.1)
[2017-08-21 07:47] VITALS: BP 116/73; PULSE 73; RESP 16
[2017-08-21] MEDS: SODIUM HYPOCHLORITE 1/40% 1L IRRIG IRR SCH ×2 (07:55→21:51)
[2017-08-21] MEDS: SOD CHLORIDE 0.45% 1,000 ML IV SCH ×2 (07:55→21:46)
[2017-08-21] MEDS: INSULIN ASPART [NOVOLOG] 3 ML PEN SC SCH ×7 (08:01→20:41)
[2017-08-21] MEDS: INSULIN GLARGINE [LANtus] 3 ML PEN SC SCH (08:01)
--- NOTE | 2017-08-21 08:38 | PN ---
DATE: 08/20/2017 INFECTIOUS DISEASE PROGRESS NOTE SUBJECTIVE: No acute changes. The patient is alert, looks comfortable. Denies pain, no fevers. LABORATORY DATA: WBC today 9.1, no shift, no bands. BUN 15, creatinine 0.93. MICROBIOLOGY: Blood culture growing gram-positive cocci in clusters. Right ankle wound growing Sta phylococcus aureus preliminary. ANTIMICROBIALS: The patient is on: 1. Vancomycin. 2. Zosyn. PHYSICAL EXAMINATION: GENERAL: Obese, well-developed, middle-aged man who is alert, in no distress. HEENT: Head atraumatic, normocephalic. Sclerae anicteric. Buccal mucosa dry. NECK: Supple. CHEST: Rise symmetrical. Breath sounds clear. HEART: S1, S2. ABDOMEN: Soft. Bowel tones present. ASSESSMENT: 1. Right ankle abscess with subcutaneous necrosis and necrotizing infection, wound culture growing Staphylococcus aureus. 2. Bacteremia, likely secondary to above. 3. Newly diagnosed diabetes. PLAN: The patient remains stable, on appropriate antimicrobials, podiatry follows. Continue presen t care, repeat blood cultures, follow final cultures pending I and D. Dictated By: HARVEY STEWARD GIS SCIENTIST for LIZETH BULLOCK/NTS Conf#: [id number] DID#: [id number] CC: NIKKI JUÁREZ;*EndCC*
--- NOTE | 2017-08-21 08:39 | CONS ---
DATE OF ADMISSION: 08/19/2017 DATE OF CONSULTATION: 08/20/2017 SUBJECTIVE FINDINGS: The patient is postoperative day 1 left ankle incision and drainage. Patient on empiric antibiotics. Preliminary wound cultures were positive for Staph aureus. The patient had right ankle MRI status post incision and drainage, and no evidence of osteomyelitis seen. The thalia ent relates less pain. OBJECTIVE FINDINGS: VITAL SIGNS: Temperature 98.5, pulse 75, respiratory rate 19, blood pressure 103/59, pulse oximetry is 97%. Blood glucose is 135. GENERAL: The patient is alert, oriented x4, no acute distress. Regular respiration. EXTREMITIES: Patient with warm right lower extremity. There is an ulceration on the lateral aspect of the foot and ankle measuring approximately 4 x 1 cm. There is mild skin necrosis to the periphe ry. Hematoma present, base of the wound. No visible purulence. Sensitivity to touch. Edema moder ate. Decrease malodor. 2+ DP, PT pulse. DIAGNOSTIC DATA: Culture, Staph aureus. MRI negative for osteomyelitis. ASSESSMENT: 1. Right ankle abscess. 2. Staphylococcus aureus, definitive results are pending. 3. Diabetes type 2, newly diagnosed. 4. Edema. 5. Pain. PLAN: The patient seen and evaluated. Wound care performed. Wound was irrigated with antiseptic s olutions and dressed with open packing and Kerlix. Will need continued antibiotics, estimated 1 to 2 weeks' duration. Recommend discharge planning and patient instructed on outpatient followup. We will initiate topical Bactroban to the ulceration b.i.d. Dictated By: KAT BENAVIDES/GRIFFIN Conf#: [id number] DID#: [id number] CC: NIKKI JUÁREZ;*EndCC*
--- NOTE | 2017-08-21 08:50 | CONS ---
Date/Time of Note Date/Time of Note DATE: 08/21/17 TIME: 08:44 Assessment/Plan Assessment/Plan Chief Complaint/Hosp Course Right ankle wound, S/P i&D 08/19/2017. May require further bedside debridements to remove non-vital tissue and reduce bio-burden. WBC: 8.6 --> 9.1--> 7.5 MRI = negative for OM. Continue IV Vanco + Zosyn. Continue local wound care. Will monitor. Problems: Consultation Date/Type/Reason Admit Date/Time Aug 19, 2017 at 14:00 Type of Consultation: Podiatry: Dr. Abi peralta Reason for Consultation Right ankle wound. 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 Developed pain. Developed right lateral ankle wound, abscess, and skin necrosis. Bedside debridement performed 08/19/2017. Also complicated by new issue of newly diagnosed Diabetes. Social History Smoking Status: Never smoker Exam/Review of Systems Vital Signs Vitals Vital Signs Date Time Temp Pulse Resp B/P Pulse Ox O2 Delivery O2 Flow Rate FiO2 08/21/17 07:47 98.1 73 16 116/73 95 Room Air Intake and Output 08/20/17 08/20/17 08/21/17 15:00 23:00 07:00 Intake Total 600 ml 1930 ml 1300 ml Balance 600 ml 1930 ml 1300 ml Exam EXTREMITIES: Right lateral ankle with skin necrosis, S/P I&D, posterior lateral ankle approximately 3 x 3 cm. Pain with palpation. The patient has a 2 + DP, PT pulse. Mild malodor. Mild drainage. Results Result Diagram: 08/21/17 0500 08/21/17 0500 Results 24 hrs Laboratory Tests Test 08/20/17 12:21 08/20/17 14:23 08/20/17 14:24 08/20/17 17:24 Bedside Glucose 206 138 Lactic Acid Level 1.6 Vancomycin Level Trough 15.9 Test 08/20/17 17:56 08/20/17 20:46 08/21/17 05:00 08/21/17 07:54 Lactic Acid Level 1.4 Bedside Glucose 135 161 White Blood Count 7.5 Red Blood Count 5.07 Hemoglobin 14.4 Hematocrit 42.2 Mean Corpuscular Volume 83.2 Mean Corpuscular Hemoglobin 28.4 L Mean Corpuscular Hemoglobin Concent 34.1 Red Cell Distribution Width 11.6 Platelet Count 383 Mean Platelet Volume 10.2 Neutrophils % 58.9 Lymphocytes % 29.7 Monocytes % 6.7 Eosinophils % 3.7 Basophils % 0.5 Nucleated Red Blood Cells % 0.0 Neutrophils # 4.4 Lymphocytes # 2.2 Monocytes # 0.5 Eosinophils # 0.3 Basophils # 0.0 Nucleated Red Blood Cells # 0.0 Sodium Level 143 Potassium Level 3.8 Chloride Level 105 Carbon Dioxide Level 29 Anion Gap 13 Blood Urea Nitrogen 12 Creatinine 0.86 Glucose Level 152 Calcium Level 8.7 Medications Medications Current Medications Ondansetron HCl (Zofran Inj) 4 mg Q6H PRN IV NAUSEA AND/OR VOMITING; Start at 16:30 Acetaminophen (Tylenol Tab) 650 mg Q6H PRN PO PAIN LEVEL 1-3 OR FEVER; Start 08/19/17 at 16:30 Acetaminophen/ Hydrocodone Bitart ([place] (5/325)) 1 tab Q6H PRN PO MODERATE PAIN LEVEL 4-6; Start 08/19/17 at 16:30 Morphine Sulfate (morphine) 2 mg Q4H PRN IV SEVERE PAIN LEVEL 7-10 Last administered on 08/20/17 11:41; Admin Dose 2 MG; Start 08/19/17 at 16:30 Docusate Sodium (Colace) 100 mg Q12H PRN PO CONSTIPATION; Start 08/19/17 at 16 :30 Magnesium Hydroxide (Milk Of Mag) 30 ml DAILY PRN PO CONSTIPATION; Start 08/19 at 16:30 Sodium Biphosphate/ Sodium Phosphate (Fleet Enema) 133 ml DAILY PRN [place] CONSTIPATION; Start 08/19/17 at 16:30 Heparin Sodium (Porcine) 5000 unit 5,000 unit Q12 SC Last administered on 08/20 20:50; Admin Dose 5,000 UNIT; Start 08/19/17 at 21:00 Sodium Chloride (1/2 NS) 1,000 ml @ 75 mls/hr [id number] IV Last administered on 08/21/17 07:55; Admin Dose 75 MLS/HR; Start 08/19/17 at 16:26 Lorazepam 0.5 mg 0.5 mg Q6H PRN IV ANXIETY; Start 08/19/17 at 16:30 Piperacillin Sod/ Tazobactam Sod (Zosyn 3.375gm/ 100 ml (Pmx)) 100 ml @ 200 mls /hr Q6 IVPB Last administered on 08/21/17 05:26; Admin Dose 200 MLS/HR; Start 08/19/17 at 18:00 Vancomycin HCl (Vanco Iv Per Pharmacy) VANCOMYCIN PER PHARMACY NOTE XX ; Start 08/19/17 at 16:30 Hydralazine HCl (Apresoline) 10 mg Q6H PRN IV ELEVATED BLOOD PRESSURE; Start 08/19/17 at 16:30 Clonidine (Catapres) 0.1 mg Q6H PRN PO ELEVATED BLOOD PRESSURE; Start at 16:30 Nitroglycerin (Nitroglycerin (Sl Tab) 0.4 Mg) 1 tab Q5M PRN SL ANGINA; Start 08/19/17 at 16:30 Miscellaneous Information 1 ea NOTE XX ; Start 08/19/17 at 17:00 Glucose (Glutose) 15 gm Q15M PRN PO DECREASED GLUCOSE; Start 08/19/17 at 17:00 Glucose (Glutose) 22.5 gm Q15M PRN PO DECREASED GLUCOSE; Start 08/19/17 at 17: 00 Dextrose (D50w Syringe) 25 ml Q15M PRN IV DECREASED GLUCOSE; Start 08/19/17 at 17:00 Dextrose (D50w Syringe) 50 ml Q15M PRN IV DECREASED GLUCOSE; Start 08/19/17 at 17:00 Glucagon (Glucagen) 1 mg Q15M PRN IM DECREASED GLUCOSE; Start 08/19/17 at 17: 00 Glucose 15 gm 15 gm Q15M PRN BUCCAL DECREASED GLUCOSE; Start 08/19/17 at 17:00 Vancomycin HCl/ Sodium Chloride (Vancocin/NS) 500 ml @ 125 mls/hr Q8H IVPB Last administered on 08/21/17 06:32; Admin Dose 125 MLS/HR; Start 08/19/17 at 23:00 Sodium Hypochlorite (Dakin'S (Dilute 1/40%)) 1 applic BID IRR Last administered on 08/21/17 07:55; Admin Dose 1 APPLIC; Start 08/19/17 at 21:00 Diagnostic Test (Pha) (Accu-Chek) 1 ea 02 XX ; Start 08/21/17 at 02:00 Insulin Glargine (Lantus) 20 unit DAILY@08 SC Last administered on 08/21/17t 08:01; Admin Dose 20 UNIT; Start 08/21/17 at 08:00 Mupirocin (Bactroban) 1 applic BID TOP ; Start 08/21/17 at 09:00 ELIZABETH COTTON DPM Aug 21, 2017 08:50
[2017-08-21] MEDS: MUPIROCIN 2% 22 GM OINT TOP SCH ×2 (09:01→21:51)
[2017-08-21] MEDS: HEPARIN 5,000 UNIT/0.5 ML VIAL SC SCH ×2 (09:10→20:58)
--- NOTE | 2017-08-21 10:04 | PN ---
Date/Time of Note Date/Time of Note DATE: 08/21/17 TIME: 10:01 Assessment/Plan VTE Prophylaxis VTE Prophylaxis Intervention: heparin Lines/Catheters IV Catheter Type (from [facility]): Peripheral IV Assessment/Plan Chief Complaint/Hosp Course ASSESSMENT/PLAN: 42-year-old male coming in with right ankle pain with signs of cellulitis and rule out osteomyelitis, as well as elevated blood sugars. 1. Right ankle pain and swelling-appreciate podiatry consult, patient had bedside incision and drainage performed earlier this admission. Wound culture positive for staph. 1 out of 2 bottles also positive for gram-positive cocci. Follow up final. MRI of the foot did not demonstrate any osteomyelitis. -Continue broad spectrum antibiotics - -Follow-up further recommendations infectious disease and podiatry consult - Tylenol p.r.n. pain and fevers. -We will also get PT consult given ankle issues 2. DM2 -appears to be new diagnosis as patient was not aware of any history of diabetes in the past. A1c = 10 range. Sugars improved in the last 24 hours -Continue aspart with meals, Lantus, continue sliding scale 3. Deep venous thrombosis prophylaxis. Heparin subcu. Problems: Subjective 24 Hr Interval Summary Free Text/Dictation Sugars improved, patient's chest pain is less now in the right ankle. Had MRI performed as well. Seen by podiatry team and infectious disease team yesterday. Exam/Review of Systems Vital Signs Vitals Vital Signs Date Time Temp Pulse Resp B/P Pulse Ox O2 Delivery O2 Flow Rate FiO2 08/21/17 07:47 98.1 73 16 116/73 95 Room Air Intake and Output 08/20/17 08/20/17 08/21/17 15:00 23:00 07:00 Intake Total 600 ml 1930 ml 1300 ml Balance 600 ml 1930 ml 1300 ml Exam GENERAL: The patient is lying in bed, answers questions appropriately. No acute distress. HEENT: Pupils equal, round, react to light. Extraocular muscles intact. NECK: Supple. No thyromegaly. LUNGS: Clear to auscultation bilaterally. CARDIAC: S1, S2 heard. No rubs or gallops. ABDOMEN: Soft, nontender, nondistended. Normal bowel sounds. No rebound or guarding. MUSCULOSKELETAL: On his right lower extremity on the right ankle, there is less less redness and warmth noted on the right outer foot and also there is drainage noted on the outside right lateral malleolus. Covered in bandage. Otherwise, no lower extremity edema bilaterally. NEUROLOGIC: No focal deficits. Results Result Diagram: 08/21/17 0500 08/21/17 0500 Results 24 hrs Laboratory Tests Test 08/20/17 12:21 08/20/17 14:23 08/20/17 14:24 08/20/17 17:24 Bedside Glucose 206 138 Lactic Acid Level 1.6 Vancomycin Level Trough 15.9 Test 08/20/17 17:56 08/20/17 20:46 08/21/17 05:00 08/21/17 07:54 Lactic Acid Level 1.4 Bedside Glucose 135 161 White Blood Count 7.5 Red Blood Count 5.07 Hemoglobin 14.4 Hematocrit 42.2 Mean Corpuscular Volume 83.2 Mean Corpuscular Hemoglobin 28.4 L Mean Corpuscular Hemoglobin Concent 34.1 Red Cell Distribution Width 11.6 Platelet Count 383 Mean Platelet Volume 10.2 Neutrophils % 58.9 Lymphocytes % 29.7 Monocytes % 6.7 Eosinophils % 3.7 Basophils % 0.5 Nucleated Red Blood Cells % 0.0 Neutrophils # 4.4 Lymphocytes # 2.2 Monocytes # 0.5 Eosinophils # 0.3 Basophils # 0.0 Nucleated Red Blood Cells # 0.0 Sodium Level 143 Potassium Level 3.8 Chloride Level 105 Carbon Dioxide Level 29 Anion Gap 13 Blood Urea Nitrogen 12 Creatinine 0.86 Glucose Level 152 Calcium Level 8.7 Medications Medications Current Medications Ondansetron HCl (Zofran Inj) 4 mg Q6H PRN IV NAUSEA AND/OR VOMITING; Start at 16:30 Acetaminophen (Tylenol Tab) 650 mg Q6H PRN PO PAIN LEVEL 1-3 OR FEVER; Start 08/19/17 at 16:30 Acetaminophen/ Hydrocodone Bitart ([place] (5/325)) 1 tab Q6H PRN PO MODERATE PAIN LEVEL 4-6; Start 08/19/17 at 16:30 Morphine Sulfate (morphine) 2 mg Q4H PRN IV SEVERE PAIN LEVEL 7-10 Last administered on 08/20/17t 11:41; Admin Dose 2 MG; Start 08/19/17 at 16:30 Docusate Sodium (Colace) 100 mg Q12H PRN PO CONSTIPATION; Start 08/19/17 at 16 :30 Magnesium Hydroxide (Milk Of Mag) 30 ml DAILY PRN PO CONSTIPATION; Start 08/19 at 16:30 Sodium Biphosphate/ Sodium Phosphate (Fleet Enema) 133 ml DAILY PRN [place] CONSTIPATION; Start 08/19/17 at 16:30 Heparin Sodium (Porcine) 5000 unit 5,000 unit Q12 SC Last administered on 08/21 09:10; Admin Dose 5,000 UNIT; Start 08/19/17 at 21:00 Sodium Chloride (1/2 NS) 1,000 ml @ 75 mls/hr [id number] IV Last administered on 08/21/17 07:55; Admin Dose 75 MLS/HR; Start 08/19/17 at 16:26 Lorazepam 0.5 mg 0.5 mg Q6H PRN IV ANXIETY; Start 08/19/17 at 16:30 Piperacillin Sod/ Tazobactam Sod (Zosyn 3.375gm/ 100 ml (Pmx)) 100 ml @ 200 mls /hr Q6 IVPB Last administered on 08/21/17 05:26; Admin Dose 200 MLS/HR; Start 08/19/17 at 18:00 Vancomycin HCl (Vanco Iv Per Pharmacy) VANCOMYCIN PER PHARMACY NOTE XX ; Start 08/19/17 at 16:30 Hydralazine HCl (Apresoline) 10 mg Q6H PRN IV ELEVATED BLOOD PRESSURE; Start 08/19/17 at 16:30 Clonidine (Catapres) 0.1 mg Q6H PRN PO ELEVATED BLOOD PRESSURE; Start at 16:30 Nitroglycerin (Nitroglycerin (Sl Tab) 0.4 Mg) 1 tab Q5M PRN SL ANGINA; Start 08/19/17 at 16:30 Miscellaneous Information 1 ea NOTE XX ; Start 08/19/17 at 17:00 Glucose (Glutose) 15 gm Q15M PRN PO DECREASED GLUCOSE; Start 08/19/17 at 17:00 Glucose (Glutose) 22.5 gm Q15M PRN PO DECREASED GLUCOSE; Start 08/19/17 at 17: 00 Dextrose (D50w Syringe) 25 ml Q15M PRN IV DECREASED GLUCOSE; Start 08/19/17 at 17:00 Dextrose (D50w Syringe) 50 ml Q15M PRN IV DECREASED GLUCOSE; Start 08/19/17 at 17:00 Glucagon (Glucagen) 1 mg Q15M PRN IM DECREASED GLUCOSE; Start 08/19/17 at 17: 00 Glucose 15 gm 15 gm Q15M PRN BUCCAL DECREASED GLUCOSE; Start 08/19/17 at 17:00 Vancomycin HCl/ Sodium Chloride (Vancocin/NS) 500 ml @ 125 mls/hr Q8H IVPB Last administered on 08/21/17 06:32; Admin Dose 125 MLS/HR; Start 08/19/17 at 23:00 Sodium Hypochlorite (Dakin'S (Dilute 1/40%)) 1 applic BID IRR Last administered on 08/21/17 07:55; Admin Dose 1 APPLIC; Start 08/19/17 at 21:00 Diagnostic Test (Pha) (Accu-Chek) 1 ea 02 XX ; Start 08/21/17 at 02:00 Insulin Glargine (Lantus) 20 unit DAILY@08 SC Last administered on 08/21/17 08:01; Admin Dose 20 UNIT; Start 08/21/17 at 08:00 Mupirocin (Bactroban) 1 applic BID TOP Last administered on 08/21/17 09:01; Admin Dose 1 APPLIC; Start 08/21/17 at 09:00 NIKKI JUÁREZ Aug 21, 2017 10:04
[2017-08-21 13:44] VITALS: BP 104/56; RESP 16
[2017-08-21] MEDS: VANCOMYCIN 1.25 GM in SOD CHLORIDE 0.9% 250 ML IVPB SCH ×2 (14:13→23:00)
--- NOTE | 2017-08-21 15:06 | PN ---
DATE: 08/21/2017 SUBJECTIVE: No events overnight. The patient is awake. Denies pain, looks comfortable, no fevers. WBC 7.5, no shift, no bands. BUN 12, creatinine 0.86. MICROBIOLOGY: Blood culture on admission grew coagulase-negative staph species. Right ankle wound culture growing oxacillin-sensitive Staphylococcus aureus resistant only to penicillin G. ANTIMICROBIALS: The patient is on: 1. IV vancomycin. 2. Zosyn. PHYSICAL EXAMINATION: GENERAL: This is an obese, well-developed, middle-aged man who is alert, in no distress. HEENT: Head atraumatic, normocephalic. Sclerae anicteric. Buccal mucosa dry. NECK: Supple. CHEST: Rise symmetrical. Breath sounds clear. HEART: S1, S2. ABDOMEN: Soft. Bowel sounds present. EXTREMITIES: Without cyanosis. ASSESSMENT: 1. Right ankle cellulitis with abscess, culture grew oxacillin-sensitive Staphylococcus aureus. 2. Coagulase-negative staph bacteremia, likely contaminant. 3. Diabetes. 4. Obesity. PLAN: We are going to discontinue current antibiotics and start patient on IV Rocephin. Continue l ocal wound care as per podiatry. Anticipate discharge on oral ciprofloxacin once he is cleared by p odiatry. The patient to continue antibiotics for 10 more days. Dictated By: HARVEY STEWARD [employer] SUPERVISOR for LIZETH BULLOCK/GRIFFIN Conf#: [id number] DID#: [id number]
[2017-08-21 16:08] VITALS: BP 104/63; PULSE 67; RESP 16
[2017-08-21 20:51] VITALS: BP 102/50; RESP 18
[2017-08-22] MEDS: ACCU-CHEK XX SCH (01:28)
[2017-08-22 02:41] VITALS: BP 90/51; RESP 18
[2017-08-22] MEDS: PIPER-TAZO 3.375 GM IV (PMX) 100 ML IVPB SCH ×2 (05:41→12:07)
[2017-08-22] MEDS: VANCOMYCIN 1.25 GM in SOD CHLORIDE 0.9% 250 ML IVPB SCH ×2 (06:37→14:24)
[2017-08-22 07:04] VITALS: BP 104/58; PULSE 63; RESP 18
[2017-08-22 07:21] LABS: BASOPHIL # 0.1 10^3/ul (0.0-0.1); BASOPHILS % 0.6 % (0.0-2.0); EOSINOPHILS # 0.3 10^3/ul (0.0-0.5); EOSINOPHILS % 3.4 % (0.0-7.0); HEMATOCRIT 43.2 % (42.0-52.0); HEMOGLOBIN 14.5 g/dl (14.0-18.0); LYMPHOCYTES # 2.4 10^3/ul (0.8-2.9); LYMPHOCYTES % 27.4 % (15.0-51.0); MEAN CORPUSCULAR HEMOGLOBIN 28.4 pg (29.0-33.0); MEAN CORPUSCULAR HGB CONC 33.6 g/dl (32.0-37.0); MEAN CORPUSCULAR VOLUME 84.5 fl (82.0-101.0); MONOCYTE # 0.6 10^3/ul (0.3-0.9); MONOCYTES % 7.2 % (0.0-11.0); NEUTROPHIL # 5.3 10^3/ul (1.6-7.5); NEUTROPHILS % 60.5 % (39.0-77.0); PLATELET COUNT 382 10^3/UL (140-415); RED BLOOD COUNT 5.11 10^6/ul (4.70-6.10); RED CELL DISTRIBUTION WIDTH 11.9 % (11.5-14.5); WHITE BLOOD COUNT 8.8 10^3/ul (4.8-10.8)
[2017-08-22 07:38] LABS: CALCIUM 8.7 mg/dl (8.4-10.2); CREATININE 1.06 mg/dl (0.61-1.24); POTASSIUM 4.2 mmol/L (3.5-5.1)
[2017-08-22] MEDS: INSULIN ASPART [NOVOLOG] 3 ML PEN SC SCH ×4 (07:51→12:12)
[2017-08-22] MEDS: MUPIROCIN 2% 22 GM OINT TOP SCH (08:05)
[2017-08-22] MEDS: SODIUM HYPOCHLORITE 1/40% 1L IRRIG IRR SCH (08:05)
[2017-08-22] MEDS: INSULIN GLARGINE [LANtus] 3 ML PEN SC SCH (08:11)
[2017-08-22] MEDS: HEPARIN 5,000 UNIT/0.5 ML VIAL SC SCH (08:11)
--- NOTE | 2017-08-22 10:05 | PDOCDIS ---
Discharge Instructions CONDITION Patient Condition: Stable HOME CARE INSTRUCTIONS: Special Diet: Carb controlled ACTIVITY: Activity Restrictions: Slowly Increase Activity FOLLOW UP/APPOINTMENTS Follow-up Plan Please take your medications as prescribed. Please follow-up with your regular doctor in the clinic in the next 1 week. NIKKI JUÁREZ Aug 22, 2017 10:05
[2017-08-22] MEDS ORDERED: CIPR500T4 PO (10:06)
[2017-08-22] MEDS ORDERED: METF850T PO (10:06)
[2017-08-22] MEDS: SOD CHLORIDE 0.45% 1,000 ML IV SCH (11:06)
--- NOTE | 2017-08-22 12:25 | DS ---
DATE OF ADMISSION: 08/19/2017 DATE OF DISCHARGE: 08/22/2017 HOSPITAL COURSE: This is a 42-year-old male, originally admitted on August 19, 2017, being discharged home on August 22, 2017, once cleared by podiatry team. The patient came in with right foot pain and drainage. He was found with a cellulitis in his right lateral foot, as well as ankle injury along his lateral malleolus. He was admitted, placed on antibiotics, seen by infectious disease team and podiatry team. Patient underwent bedside debridement on August 19, 2017. The patient also received wound care. His wound cultures were positive for Staphylococcus aureus and also 1/2 blood cultures initially were positive for coagulase-negative staph. Subsequent blood cultures were negative. Over the course of his hospital stay, his right foot pain, and cellulitis symptoms improved. He had an MRI of the right foot performed that showed a large posterior lateral skin defect ulceration with adjacent cellulitic changes and granulation tissue about 3 cm in anterior-posterior dimension and 1.5 cm in depth but no evidence of any drainable fluid collection or underlying osteomyelitis. No evidence of any tendon tears. The patient worked with walking with a front-wheel walker. His hemoglobin A1c was found to be elevated as well and his sugars were elevated. His hemoglobin A1c was 10.2. He was placed on insulin, medications and his sugar stabilized. The patient was seen by extension educator as well and given education. Again, his right foot symptoms improved. He was able to ambulate and tolerate a p.o. diet. Vital signs are stable. Labs are stable and once we get clearance from podiatry team, he will be discharged home today in improved condition. DISCHARGE MEDICATIONS: If he is cleared by podiatry team and goes home, he will be sent with: 1. Ciprofloxacin 500 mg p.o. b.i.d. for 10 days. 2. Metformin 850 mg p.o. b.i.d. FOLLOWUP: He will need to follow a regular doctor in the clinic in the next 1-2 weeks. FINAL DIAGNOSES: 1. Right ankle pain and swelling with cellulitis, status post bedside incision and drainage performed on lateral malleolus area. Negative for osteomyelitis. 2. Type 2 diabetes. Newly diagnosed with A1c of 10.2. TIME SPENT ON DISCHARGE: 45 minutes. Dictated By: Elijah Carroll MD /lalo/vicki /Document#: [id number]
--- NOTE | 2017-08-22 12:44 | CONS ---
Date/Time of Note Date/Time of Note DATE: 08/22/17 TIME: 12:42 Consult Date/Type/Reason Admit Date/Time Aug 19, 2017 at 14:00 Initial Consult Date Type of Consultation: ID Objective Vital Signs Date Time Temp Pulse Resp B/P Pulse Ox O2 Delivery O2 Flow Rate FiO2 08/22/17 07:04 98.2 63 18 104/58 93 Room Air Intake and Output 08/21/17 08/21/17 08/22/17 15:00 23:00 07:00 Intake Total 800 ml 2050 ml 1575 ml Output Total 1000 ml Balance 800 ml 2050 ml 575 ml Results/Medications Result Diagram: 08/22/17 0629 08/22/17 0629 Results 24 hrs Laboratory Tests Test 08/21/17 17:47 08/21/17 20:28 08/22/17 06:29 08/22/17 07:49 Bedside Glucose 105 109 113 White Blood Count 8.8 Red Blood Count 5.11 Hemoglobin 14.5 Hematocrit 43.2 Mean Corpuscular Volume 84.5 Mean Corpuscular Hemoglobin 28.4 L Mean Corpuscular Hemoglobin Concent 33.6 Red Cell Distribution Width 11.9 Platelet Count 382 Mean Platelet Volume 10.0 Neutrophils % 60.5 Lymphocytes % 27.4 Monocytes % 7.2 Eosinophils % 3.4 Basophils % 0.6 Nucleated Red Blood Cells % 0.0 Neutrophils # 5.3 Lymphocytes # 2.4 Monocytes # 0.6 Eosinophils # 0.3 Basophils # 0.1 Nucleated Red Blood Cells # 0.0 Sodium Level 144 Potassium Level 4.2 Chloride Level 103 Carbon Dioxide Level 30 Anion Gap 15 Blood Urea Nitrogen 13 Creatinine 1.06 Glucose Level 115 Calcium Level 8.7 Test 08/22/17 11:56 Bedside Glucose 127 Medications Current Medications Ondansetron HCl (Zofran Inj) 4 mg Q6H PRN IV NAUSEA AND/OR VOMITING; Start at 16:30 Acetaminophen (Tylenol Tab) 650 mg Q6H PRN PO PAIN LEVEL 1-3 OR FEVER; Start 08/19/17 at 16:30 Acetaminophen/ Hydrocodone Bitart ([place] (5/325)) 1 tab Q6H PRN PO MODERATE PAIN LEVEL 4-6; Start 08/19/17 at 16:30 Morphine Sulfate (morphine) 2 mg Q4H PRN IV SEVERE PAIN LEVEL 7-10 Last administered on 08/20/17 11:41; Admin Dose 2 MG; Start 08/19/17 at 16:30 Docusate Sodium (Colace) 100 mg Q12H PRN PO CONSTIPATION; Start 08/19/17 at 16 :30 Magnesium Hydroxide (Milk Of Mag) 30 ml DAILY PRN PO CONSTIPATION; Start 08/19 at 16:30 Sodium Biphosphate/ Sodium Phosphate (Fleet Enema) 133 ml DAILY PRN [place] CONSTIPATION; Start 08/19/17 at 16:30 Heparin Sodium (Porcine) 5000 unit 5,000 unit Q12 SC Last administered on 08/22 08:11; Admin Dose 5,000 UNIT; Start 08/19/17 at 21:00 Sodium Chloride (1/2 NS) 1,000 ml @ 75 mls/hr [id number] IV Last administered on 08/21/17 07:55; Admin Dose 75 MLS/HR; Start 08/19/17 at 16:26 Lorazepam 0.5 mg 0.5 mg Q6H PRN IV ANXIETY; Start 08/19/17 at 16:30 Piperacillin Sod/ Tazobactam Sod (Zosyn 3.375gm/ 100 ml (Pmx)) 100 ml @ 200 mls /hr Q6 IVPB Last administered on 08/22/17 12:07; Admin Dose 200 MLS/HR; Start 08/19/17 at 18:00 Vancomycin HCl (Vanco Iv Per Pharmacy) VANCOMYCIN PER PHARMACY NOTE XX ; Start 08/19/17 at 16:30 Hydralazine HCl (Apresoline) 10 mg Q6H PRN IV ELEVATED BLOOD PRESSURE; Start 08/19/17 at 16:30 Clonidine (Catapres) 0.1 mg Q6H PRN PO ELEVATED BLOOD PRESSURE; Start at 16:30 Nitroglycerin (Nitroglycerin (Sl Tab) 0.4 Mg) 1 tab Q5M PRN SL ANGINA; Start 08/19/17 at 16:30 Miscellaneous Information 1 ea NOTE XX ; Start 08/19/17 at 17:00 Glucose (Glutose) 15 gm Q15M PRN PO DECREASED GLUCOSE; Start 08/19/17 at 17:00 Glucose (Glutose) 22.5 gm Q15M PRN PO DECREASED GLUCOSE; Start 08/19/17 at 17: 00 Dextrose (D50w Syringe) 25 ml Q15M PRN IV DECREASED GLUCOSE; Start 08/19/17 at 17:00 Dextrose (D50w Syringe) 50 ml Q15M PRN IV DECREASED GLUCOSE; Start 08/19/17 at 17:00 Glucagon (Glucagen) 1 mg Q15M PRN IM DECREASED GLUCOSE; Start 08/19/17 at 17: 00 Glucose (Glutose) 15 gm Q15M PRN BUCCAL DECREASED GLUCOSE; Start 08/19/17 at 17:00 Sodium Hypochlorite (Dakin'S (Dilute 1/40%)) 1 applic BID IRR Last administered on 08/22/17 08:05; Admin Dose 1 APPLIC; Start 08/19/17 at 21:00 Diagnostic Test (Pha) (Accu-Chek) 1 ea 02 XX ; Start 08/21/17 at 02:00 Insulin Glargine (Lantus) 20 unit DAILY@08 SC Last administered on 08/22/17 08:11; Admin Dose 20 UNIT; Start 08/21/17 at 08:00 Mupirocin 1 applic 1 applic BID TOP Last administered on 08/22/17 08:05; Admin Dose 1 APPLIC; Start 08/21/17 at 09:00 Vancomycin HCl/ Sodium Chloride (Vancocin/NS) 250 ml @ 83.333 mls/ hr Q8H IVPB Last administered on 08/22/17 06:37; Admin Dose 83.333 MLS/HR; Start at 15:00 Miscellaneous Information (*Rx Drug Level Order Reminder*) VANCO TROUGH @ 2, 200 ON ... ONCE ONCE XX ; Start 08/22/17 at 22:00; Stop 08/22/17 at 22:01 Assessment/Plan Chief Complaint/Hosp Course SUBJECTIVE: No events overnight. The patient is awake. Denies pain, looks comfortable, no fevers. MICROBIOLOGY: Blood culture on admission grew coagulase-negative staph species. Right ankle wound culture growing oxacillin-sensitive Staphylococcus aureus resistant only to penicillin G. ANTIMICROBIALS: The patient is on Rocephin PHYSICAL EXAMINATION: GENERAL: This is an obese, well-developed, middle-aged man who is alert, in no distress. HEENT: Head atraumatic, normocephalic. Sclerae anicteric. Buccal mucosa dry. NECK: Supple. CHEST: Rise symmetrical. Breath sounds clear. HEART: S1, S2. ABDOMEN: Soft. Bowel sounds present. EXTREMITIES: Without cyanosis. ASSESSMENT: 1. Right ankle cellulitis with abscess, culture grew oxacillin-sensitive Staphylococcus aureus. 2. Coagulase-negative staph bacteremia, cw contaminant. 3. Diabetes. 4. Obesity. PLAN: Stable, repeat bld cx negative, continue abx, local wound care as per podiatry. Anticipate discharge on oral ciprofloxacin once he is cleared by podiatry. The patient to continue antibiotics for 10 more days. JACKIE staff Problems: HARVEY STEWARD NP Aug 22, 2017 12:44
== END 2017-08-22 15:15 | disposition home or self-care (01) | DRG 988 ==
LOC: FTE 11:13 → UNDOADMIN 14:00 → MS2 14:00
PROVIDERS: ADMIT Hospitalist; ATTEND Hospitalist
PROC: 0J9N0ZZ Drainage of Right Lower Leg Subcutaneous Tissue and Fascia, Open Approach (ICD-10-PCS; principal; 2017-08-19)
DX: E11.622 Type 2 diabetes mellitus with other skin ulcer (principal); L97.318 Non-pressure chronic ulcer of right ankle with other specified severity; M86.9 Osteomyelitis, unspecified; R78.81 Bacteremia; E11.65 Type 2 diabetes mellitus with hyperglycemia; L03.115 Cellulitis of right lower limb; Z68.41 Body mass index [BMI] 40.0-44.9, adult; B95.61 Methicillin susceptible Staphylococcus aureus infection as the cause of diseases classified elsewhere; B95.7 Other staphylococcus as the cause of diseases classified elsewhere; E66.9 Obesity, unspecified
CPT/HCPCS: 36415; 73630; 73718; 80048; 80061; 80202; 82962; 83036; 83605; 83735; 84100; 84439; 84443; 85025; 85610; 85651; 85730; 86140; 87040; 87070; 96374; 96375; 97163; J1644; J1815; J2270; J2405; J2543; J3370; J7030; J7040; J7050